=== PATIENT | female | born 1995 | race African-American/Black ===

== ENCOUNTER 2019-03-02 20:12 | Emergency (ER) | payer MEDICAID, OTHER ==
[~2019-03-02] VITALS: Ht 172.7 cm; Wt 61.0 kg
[2019-03-02 20:23] VITALS: BP 112/65
== END 2019-03-02 21:00 | disposition left against medical advice (07) ==
LOC: ER 20:12
DX: R10.9 Unspecified abdominal pain (principal); Z53.21 Procedure and treatment not carried out due to patient leaving prior to being seen by health care provider